=== PATIENT | male | born 1995 | race Caucasian/White ===

== ENCOUNTER 2024-09-23 20:05 | Emergency (ER) | payer OTHER, BC, SELFPAY ==
--- NOTE | ~2024-09-23 | XR_ITS ---
EXAMINATION: XR KNEE, RIGHT XR TIBIA AND FIBULA, RIGHT CLINICAL INFORMATION: fall COMPARISON: None available. TECHNIQUE: Four views of the right knee. AP and lateral views of the right tibia and fibula were obtained. FINDINGS: No fracture or joint effusion. Alignment is anatomic. Joint spaces are maintained. No abnormal soft tissue calcification. XR/XR knee RT 4V IMPRESSION: Normal right knee and right tibia/fibula. Electronically signed by: Ryan Olivares MD 09/23/2024 09:21 PM EST
--- NOTE | ~2024-09-23 | XR_ITS ---
EXAMINATION: XR KNEE, RIGHT XR TIBIA AND FIBULA, RIGHT CLINICAL INFORMATION: fall COMPARISON: None available. TECHNIQUE: Four views of the right knee. AP and lateral views of the right tibia and fibula were obtained. FINDINGS: No fracture or joint effusion. Alignment is anatomic. Joint spaces are maintained. No abnormal soft tissue calcification. XR/XR tibia fibula RT 2V IMPRESSION: Normal right knee and right tibia/fibula. Electronically signed by: Ryan Olivares MD 09/23/2024 09:21 PM EST RP
[2024-09-23 20:14] VITALS: BP 131/75; PULSE 78; RESP 16; TEMP 37; O2SAT 100; BMI 23.7
--- NOTE | 2024-09-23 20:22 | ED_ITS ---
HPI - General Adult General Chief complaint: Extremity Injury, Lower Stated complaint: fall, R knee pain CPD Time Seen by Provider: 09/23/24 22:24 Source: patient Mode of arrival: ambulatory Limitations: no limitations History of Present Illness ED Provider: Dr. Cady Thurman HPI narrative: Patient comes to the emergency room complaining of no extremity injuries. Patient complaining of bilateral knees scrapes and right knee swelling. 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 However, patient fell on the ground, landing on his knees. Patient did not hit his head, did not lose consciousness. Patient is able to bear weight but has noticed that his right knee is getting swollen. Per patient, he is up-to-date with his tetanus shot Related Data Allergies Allergy/AdvReac Type Severity Reaction Status Date / Time No Known Allergies Allergy Verified 09/23/24 20:16 Review of Systems Review of Systems: Constitutional : No Weight loss, No Fever, No Chills, No Night Sweats, No Fatigue, No Malaise ENT/Mouth : No Hearing loss, No Ear Pain, No Nasal Congestion, No Sinus Pain, No Hoarseness, No sore throat, No Rhinorrhea, No Swallowing Difficulty Eyes: No Eye Pain, No Swelling, No Redness, No Foreign Body, No Discharge, No Vision Changes Cardiovascular : No Chest Pain, No SOB, No Dyspnea on Exertion, No Orthopnea, No Edema, No Palpitations Respiratory : No Cough, No Sputum, No Wheezing, No Smoke Exposure, No Dyspnea Gastrointestinal : No Nausea, No Vomiting, No Diarrhea, No Constipation, No abdominal Pain, No Hematochezia, No Melena Genitourinary : no irregular bleeding, No Dysuria, No Urinary Frequency, No Hematuria, No Urinary Incontinence, No Urgency, No Flank Pain, No Urinary Flow Changes, No Hesitancy Musculoskeletal : Complaining of right knee pain, swelling, Skin : Complaining of bilateral lower extremity scrapes Neuro : No Weakness, No Numbness, No Paresthesias, No Loss of Consciousness, No Dizziness, No Headache Psych : No Anxiety/Panic, No Depression, No SI/HI/AH/VH, No Social Issues, Heme/Lymph: No Bruising, No Bleeding,No Lymphadenopathy Endocrine : No Polyuria, No Polydipsia, No Temperature Intolerance PMFSH Social History Social History Advance Directives: No Advance Directives Information Provided: No Do you have a plan to hurt others: No Plan Physical Exam ED Vital Signs: Vital Signs - 24 hr 09/23/24 20:14 09/23/24 22:13 09/23/24 22:49 Temperature 98.6 F 97.2 F 97.2 F Pulse Rate 78 77 77 Respiratory Rate 16 16 16 Blood Pressure 131/75 133/58 L 133/58 L Pulse Oximetry 100 98 98 Oxygen Delivery Method Room Air Room Air Room Air BMI result Body Mass Index 23.7 Const Other: Appearance: Alert. Oriented X3. No acute distress. Eyes: Pupils equal, round and reactive to light. ENT: Pharynx normal. Neck: Normal inspection. Neck supple. No lymph nodes noted. No crepitus CVS: Normal heart rate and rhythm. Pulses normal. Normal S1 and S2 Respiratory: No respiratory distress. Breath sounds normal. No Wheezing. No rales Abdomen: Soft and nontender. No rigidity. No distention. Skin: Patient has been vitals abrasions in both knees, superficial, no lacerations Extremities: Patient is able to flex and extend both knees, ecchymosis on both sides, small to moderate joint effusion in the left knee, no cellulitis. No significant pain to palpation. Patient able to bear weight and walk Neuro: Oriented X 3. No motor deficit. No sensory deficit. Moving all extremities. No slurred speech. CN 2 through 12 grossly intact Psych: calm, cooperative, normal affect Course Course Course Narrative: RmE: 29 yold male with no pmh presents to the ED for right knee pain after walling while chasing a perp. Patient has slipped on ice. Positive for right knee tenderness and abrasion. Positive for right elbow abrasion but no tenderness. Positive for left knee abrasion but no tenderness. Knee x-ray ordered. Medical Decision Making Medical Decision Making MDM Narrative: Patient has superficial injuries, patient has a joint effusion in the right knee. Still able to walk. At this time, a thoracentesis not indicated Independent Interpretation I performed an independent interpretation of an: Plain X-Ray Radiology Impression Discussion of test interpretation with radiology: I have reviewed the radiologist's reading. Radiologist Impression: Normal right knee and right tibia/fibula. Discharge Plan Discharge Clinical Impression: Abrasion, Contusion of knee, Effusion of knee Patient Disposition: Home, Self-Care Instructions: Contusion in Adults (ED), Swollen Joint (ED) Additional Instructions: Please follow-up with your primary care physician tomorrow. If you have any worsening or new symptoms, please return to the emergency room or call 911 Referrals: Braxton Christianson MD [Physician] - 09/26/24 Interventions: ED Discharge Assessment Last Done: 09/23/24 22:49 Discharge Date/Time: 09/23/24 22:49 Print Language: Thai
[2024-09-23 22:13] VITALS: BP 133/58; PULSE 77; RESP 16; TEMP 36.2; O2SAT 98
[2024-09-23 22:49] VITALS: BP 133/58; PULSE 77; RESP 16; TEMP 36.2; O2SAT 98
== END 2024-09-23 22:49 | disposition home or self-care (01) ==
PROVIDERS: Emergency Provider Emergency Medicine
DX: S80.212A Abrasion, left knee, initial encounter (principal); S80.211A Abrasion, right knee, initial encounter; S80.02XA Contusion of left knee, initial encounter; S80.01XA Contusion of right knee, initial encounter; Y35.891A Legal intervention involving other specified means, law enforcement official injured, initial encounter; M25.461 Effusion, right knee; Y93.02 Activity, running; Y92.480 Sidewalk as the place of occurrence of the external cause; Y99.0 Civilian activity done for income or pay
CPT/HCPCS: 73564; 73590; 99283

== ENCOUNTER → 2024-09-27 07:45 | Outpatient (BNVA) | payer OTHER, SELFPAY | PROVIDERS: Visit Provider Internal Medicine | DX: S80.01XA Contusion of right knee, initial encounter (principal); W18.39XA Other fall on same level, initial encounter; Y35.891A Legal intervention involving other specified means, law enforcement official injured, initial encounter; Z02.79 Encounter for issue of other medical certificate | CPT/HCPCS: 99203 ==

== ENCOUNTER → 2024-10-04 11:21 | Outpatient (BNVA) | payer OTHER, SELFPAY | PROVIDERS: Visit Provider Internal Medicine | DX: S80.01XD Contusion of right knee, subsequent encounter (principal); W18.39XD Other fall on same level, subsequent encounter; Z02.79 Encounter for issue of other medical certificate | CPT/HCPCS: 99213 ==